=== PATIENT | female | born 1940 ===

== ENCOUNTER 2018-05-04 22:07 | Emergency (ER) | payer MEDICARE, MEDICAID ==
[2018-05-04] MEDS ORDERED: MAGNESIUM HYDROXIDE/AL HYDROX 30 ML, LIDOCAINE VISC 2% 15ML 15 ML PO ONE ×2 (22:29)
--- NOTE | 2018-05-04 22:36 | Emergency Department Record ---
History of Present Illness - General Chief Complaint: Abdominal Pain Stated Complaint: ABDOMINAL PAIN Time Seen by Provider: 05/04/18 22:10 Source: Patient Mode of Arrival: Ambulatory Limitations: No limitations - History of Present Illness Initial Comments: 78 yo female presents to ED for evaluation of epigastric and RUQ pain symptoms intermittently for 2 months. Patient reports that he pain symptoms have currently resolved, however were worse earlier this evening. Patient reports that her pain symptoms have been present prior to cholecystectomy 2 months ago that was performed for her symptoms. Patient denies nausea/vomiting, fevers, chills, or recent illness. Patient was told by her PCP to take Ibuprofen for her symptoms. MD Complaint: Abdominal pain Onset/Timin -: Month(s) Location: RUQ Radiation: None Migration to: No migration Quality: Other Consistency: Constant Improves With: Medication Worsens With: Nothing Associated Symptoms: Denies other symptoms - Related Data Patient : No Allergies Allergy/AdvReac Type Severity Reaction Status Date / Time No Known Drug Allergies Allergy Verified 10/31/14 15:18 Travel Screening - Travel/Exposure Within Last 30 Days Have you traveled within the last 30 days?: No - Travel Symptoms Symptom Screening: None Review of Systems Constitutional: Denies: Chills, Fever, Malaise, Night sweats Eyes: Denies: Eye discharge, Eye pain ENT: Denies: Congestion, Ear pain, Epistaxis Respiratory: Denies: Cough, Dyspnea Cardiovascular: Denies: Chest pain, Dyspnea on exertion Endocrine: Denies: Fatigue, Heat or cold intolerance Gastrointestinal: Reports: Abdominal pain. Denies: Nausea, Vomiting Genitourinary: Denies: Hematuria, Incontinence Musculoskeletal: Denies: Arthralgia, Back pain, Gout, Joint swelling Skin: Denies: Bruising, Change in color Neurological: Denies: Abnormal gait, Confusion, Headache, Seizure Psychiatric: Denies: Anxiety Hematological/Lymphatic: Denies: Anemia, Blood Clots Past Medical History - SOCIAL HISTORY Smoking Status: Former smoker - RESPIRATORY Hx Respiratory Disorders: No - CARDIOVASCULAR Hx Cardio Disorders: Yes Hx Hypertension: Yes - NEURO Hx Neuro Disorders: No - GI Hx GI Disorders: Yes Hx Diverticulitis: Yes Hx Irritable Bowel: Yes - Hx Genitourinary Disorders: No - ENDOCRINE Hx Endocrine Disorders: Yes Hx Thyroid Disease: Yes - MUSCULOSKELETAL Hx Musculoskeletal Disorders: Yes Hx Arthritis: Yes Hx Osteoporosis: Yes - PSYCH Hx Psych Problems: No - HEMATOLOGY/ONCOLOGY Hx Hematology/Oncology Disorders: No Family Medical History Any Significant Family History?: Yes Hx Diabetes: Mother, Brother/Sister Hx Heart Disease: Mother, Brother/Sister Hx HTN: Mother Physical Exam - General General Appearance: Alert, Oriented x3, Cooperative, No acute distress, Other ( Patient reports that she is pain-free currently.) Limitations: No limitations - Head Head exam: Atraumatic, Normocephalic, Normal inspection Head exam detail: negative: Abrasion, Contusion, Butterfield's sign, General tenderness, Hematoma, Laceration - Eye Eye exam: Normal appearance. negative: Conjunctival injection, Periorbital swelling, Periorbital tenderness, Scleral icterus - ENT Ear exam: negative: Auricular hematoma, Auricular trauma Nasal Exam: negative: Active bleeding, Discharge, Dried blood, Foreign body Mouth exam: negative: Drooling, Laceration, Muffled voice, Tongue elevation - Neck Neck exam: Normal inspection. negative: Meningismus, Tenderness - Respiratory Respiratory exam: Normal lung sounds bilaterally. negative: Rales, Respiratory distress, Rhonchi, Stridor - Cardiovascular Cardiovascular Exam: Regular rate, Normal rhythm, Normal heart sounds - GI/Abdominal GI/Abdominal exam: Soft, Tenderness (Mild TTP to the epigastric/RUQ on examination, no rebound or guarding present.). negative: Rebound, Rigid - Rectal Rectal exam: Deferred - exam: Deferred - Extremities Extremities exam: Normal inspection. negative: Calf tenderness, Pedal edema, Tenderness - Back Back exam: Denies: CVA tenderness (R), CVA tenderness (L) - Neurological Neurological exam: Alert, Normal gait, Oriented X3 - Psychiatric Psychiatric exam: Normal affect, Normal mood - Skin Skin exam: Normal color. negative: Abrasion Type of lesion: negative: abrasion Course Vital Signs 05/04/18 22:14 Temperature 97.5 F L Pulse Rate [ 71 Pulse Ox Probe] Respiratory 18 Rate Blood Pressure 195/116 [Left Arm] Pulse Ox 96 - Reevaluation(s) Reevaluation #1: 05/04/18 22:35 Patient was seen and examined, will initiate evaluation to exclude post-op abscess with laboratory studies and CT imaging. Patient and her daughter at the bedside are in agreement with the POC as discussed. Reevaluation #2: 05/04/18 23:10 Laboratory studies were reviewed: Lipase 165 Potassium 2.9 Labs are otherwise grossly unremarkable for an acute process. Oral potassium ordered following the patient's return from CT imaging. Reevaluation #3: 05/04/18 23:36 Patient is back from CT imaging, continues to deny symptoms at this time. Patient was updated on all results thus far pending CT imaging results. Reevaluation #4: 05/05/18 00:27 CT Abdomen and Pelvis: 1. 2.4 cm liver hemangioma 2. 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 4.2 cm parapelvic cyst 4. No evidence for kidney stone or urinary tract obstruction. 5. ? Acute diverticulitis of the LLQ-does not correlate with the patient's pain symptoms RUQ. 2.8 cm inguinal hernia left without bowel UA reviewed and appears normal. Patient was updated on all results, denies recent loose stools or hematochezia. Discussed treatment with antibiotics with shared decision making, patient is in agreement with holding antibiotics at this time as her symptoms and examination do not appear c/w diverticulitis. Patient continues to remain pain-free in ED throughout her stay as well. Will place consult with Dr. Watts for next Thursday re: CT imaging results ( specifically liver herniation). Patient and her daughter are in agreement with the plan of care as discussed. Medical Decision Making - Lab Data Result diagrams: 05/04/18 22:38 05/04/18 22:38 Disposition Disposition: Discharge Clinical Impression: Hypokalemia Abdominal pain Qualifiers: Abdominal location: epigastric Qualified Code(s): R10.13 - Epigastric pain Disposition: Home, Self-Care Condition: (2) Stable Instructions: Abdominal Pain (ED) Additional Instructions: Return to ED if your symptoms worsen or if you have any concerns. Follow-up with Dr. Watts in the [facility] Thursday as directed. Referrals: Massimo Watts [DOCTOR OF OSTEOPATH] - [facility] [Provider Group] Forms: Patient Portal Access Time of Disposition: 00:47 Quality - Quality Measures Quality Measures: N/A - Blood Pressure Screening Does Patient Have Any of the Following: No Blood Pressure Classification: Hypertensive Reading Systolic Measurement: 194 Diastolic Measurement: 105 Screening for High Blood Pressure: < First Hypertensive BP, F/U Documented > [ [id number]] First Hypertensive Follow-up Interventions: Referral to alternative/primary care provider.
[2018-05-04 22:44] LABS: EOS % 3.8 % (0-6); GRAN % 48.8 % (47-80); HEMATOCRIT 38.1 % (35.0-47.0); LYMPH % 33.8 % (16-45); MEAN CELL VOLUME 85.2 fl (81-97); MEAN CORPUSCULAR HEMOGLOBIN 26.8 pg (27-33); MEAN CORPUSCULAR HGB CONC 31.5 g/dl (32-36); MEAN PLATELET VOLUME 8.6 fl (7.4-10.4); MONO % 12.6 % (0-9); PLATELET COUNT 431 K/uL (130-400); RED BLOOD COUNT 4.47 M/uL (3.80-5.40); WHITE BLOOD COUNT W/O DIFF 7.9 K/uL (4.2-12.2)
[2018-05-04 22:54] LABS: BILIRUBIN,TOTAL < 0.20 mg/dL (0.2-1.0); BLOOD UREA NITROGEN 13 mg/dL (8-23); CREATININE 0.7 mg/dL (0.5-0.9); EST GLOMERULAR FILTRATION RATE > 60 mL/min
[2018-05-04 22:57] LABS: GLUCOSE,RANDOM 106 mg/dL (74-109)
[2018-05-04 22:59] LABS: ALB/GLOB RATIO 1.7 (1.1-1.8); ALBUMIN 4.4 g/dL (4.0-5.0); ALKALINE PHOSPHATASE 83 U/L (35-104); ALT/SGPT 19 U/L (<33); AST/SGOT 23 U/L (10.0-35.0)
[2018-05-04 23:00] LABS: LIPASE 165 U/L (13-60)
[2018-05-04] MEDS ORDERED: MAGNESIUM SULFATE 16 MEQ in 0.9 % SODIUM CHLORIDE 100ML 100 ML IV ONE (23:11)
[2018-05-04] MEDS ORDERED: POTASSIUM BICARB./CIT AC 25 MEQ EFF.TAB PO STA (23:11)
[2018-05-05 00:29] LABS: URINE APPEARANCE CLEAR; URINE BILIRUBIN NEGATIVE (NEGATIVE); URINE BLOOD NEGATIVE (NEGATIVE); URINE COLOR YELLOW; URINE GLUCOSE (UA) NEGATIVE (NEGATIVE); URINE KETONE NEGATIVE (NEGATIVE); URINE LEUKOCYTE ESTERASE NEGATIVE (NEGATIVE); URINE NITRITE NEGATIVE (NEGATIVE); URINE PROTEIN NEGATIVE (NEGATIVE); URINE UROBILINOGEN 0.2 E.U./dL (0.20 - 1.00)
== END 2018-05-05 00:58 | disposition home or self-care (01) ==
LOC: ER 22:07
DX: R10.13 Epigastric pain (principal); E87.6 Hypokalemia; I10 Essential (primary) hypertension; Z87.891 Personal history of nicotine dependence
CPT/HCPCS: 99284 ×2; 96365; 83690; 85025; 80053; 81003; 74177; Q9967